=== PATIENT | female | born 1970 | race Two or more races ===

== ENCOUNTER 2017-01-27 05:04 | Emergency (ER) | payer SELFPAY ==
[~2017-01-27] VITALS: Ht 165.1 cm; Wt 61.2 kg
[2017-01-27] MEDS ORDERED: ASPIRIN 325 MG TABLET PO ONE (06:00)
--- NOTE | 2017-01-27 06:04 | PHYS DOC ---
Past Medical History Past Medical History: No Pertinent History Past Surgical History: No Surgical History Alcohol Use: None Drug Use: None Adult General Chief Complaint Chief Complaint: CHEST PAIN HPI HPI Patient is a 46 year old female who presents with for evaluation of intermittent chest pain over the past 3 days associated with radiation to left upper back, nausea, and chills. She states this lasts approx 2-3 hours at a time. Nonexertional. Has not had symptoms since around midnight. She otherwise has slight swelling of her lower lip and has taken benadryl with some improvement in this symptom. She denies cough, hemoptysis, leg pain or swelling , diaphoresis, palpitations, orthopnea, exertional symptoms, abdominal pain, diarrhea, constipation. Review of Systems Review of Systems Constitutional: Denies fever or chills [] Eyes: Denies change in visual acuity, redness, or eye pain [] HENT: Denies nasal congestion or sore throat [] Respiratory: Denies cough or shortness of breath [] Cardiovascular: No additional information not addressed in HPI [] GI: Denies abdominal pain, vomiting, bloody stools or diarrhea [] : Denies dysuria or hematuria [] Musculoskeletal: Denies back pain or joint pain [] Integument: Denies rash or skin lesions [] Neurologic: Denies headache, focal weakness or sensory changes [] Endocrine: Denies polyuria or polydipsia [] Current Medications Current Medications Current Medications Medications (Trade) Dose Ordered Sig/Marisa Start Time Stop Time Status Last Admin Dose Admin Aspirin (Julio C Aspirin) 325 mg 1X ONCE 01/27/17 06:00 01/27/17 06:01 DC 01/27/17 06:10 325 MG Allergies Allergies Allergies Coded Allergies Type Severity Reaction Last Updated Verified No Known Drug Allergies 01/04/16 No Physical Exam Physical Exam Constitutional: Well developed, well nourished, no acute distress, non-toxic appearance. [] HENT: Normocephalic, atraumatic, bilateral external ears normal, oropharynx moist, no oral exudates, nose normal. [] Eyes: PERRLA, EOMI, conjunctiva normal, no discharge. [] Neck: Normal range of motion, no tenderness, supple, no stridor. [] Cardiovascular:Heart rate regular rhythm [] Lungs & Thorax: Bilateral breath sounds clear to auscultation. No chest wall tenderness. [] Abdomen: Bowel sounds normal, soft, no tenderness. [] Skin: Warm, dry, no erythema, no rash. [] Back: No tenderness, no CVA tenderness. [] Extremities: No tenderness, ROM intact, no edema. [] Neurologic: Alert and oriented X 3, normal motor function, normal sensory function, no focal deficits noted. [] Psychologic: Affect normal, judgement normal, mood normal. [] Current Patient Data Vital Signs Vital Signs Date Time Temp Pulse Resp B/P (MAP) Pulse Ox O2 Delivery O2 Flow Rate FiO2 01/27/17 06:08 78 19 108/55 (72) 98 Room Air 01/27/17 05:26 98.2 98.2 EKG EKG EKG as interpreted by me as normal sinus rhythm, rate 75, no ST-T changes, normal intervals, no ectopy Radiology/Procedures Radiology/Procedures Chest xray as interpreted by me with no acute cardiopulmonary disease process Course & Med Decision Making Course & Med Decision Making Pertinent Labs and Imaging studies reviewed. (See chart for details) Workup is unremarkable. She remains asymptomatic at this time. Encouraged outpatient cardiology and primary care follow-up. Return precautions given. She understands and agrees with plan. Dragon Disclaimer Dragon Disclaimer This electronic medical record was generated, in whole or in part, using a voice recognition dictation system. Departure Departure Impression: Primary Impression: Chest pain Disposition: 01 HOME, SELF-CARE Condition: STABLE Referrals: NO PCP (PCP) FARHAN FRIEDMAN MD Patient Instructions: Chest Pain (Nonspecific), [id number] Additional Instructions: Follow-up with your primary care doctor within one week. Please call cardiology clinic for follow-up within one week. Return for any concerns. Problem Qualifiers Primary Impression: Chest pain Chest pain type: unspecified Qualified Codes: R07.9 - Chest pain, unspecified Ashley GRIJALVA MD Jan 27, 2017 06:04
[2017-01-27 06:08] VITALS: BP 108/55
--- NOTE | 2017-01-27 06:12 | EKG ---
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
--- NOTE | 2017-01-27 07:12 | RAD ---
Chest, 2 views, 01/27/2017: History: Chest pain The heart size and pulmonary vascularity are normal. There is minimal scarring over the pulmonary apices. No pulmonary infiltrates are seen. There is no evidence of pleural fluid. IMPRESSION: No acute cardiopulmonary abnormality is detected.
== END 2017-01-27 06:19 | disposition home or self-care (01) ==
LOC: ER 05:04
DX: R07.89 Other chest pain (principal); M54.6 Pain in thoracic spine; R11.0 Nausea; Z79.82 Long term (current) use of aspirin
CPT/HCPCS: 71020; 93005; 99284-25